=== PATIENT | male | born 2000 | race Asian ===

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

== ENCOUNTER 2019-05-31 16:56 | Emergency (ER) | payer MEDICAID ==
[~2019-05-31] VITALS: Ht 177.8 cm; Wt 117.9 kg
[2019-05-31 17:04] VITALS: BP 133/73
[2019-05-31] MEDS ORDERED: ASPirin 81 mg TAB PO ONE (18:15)
[2019-05-31 19:48] LABS: Basophils # (auto) 0 uL; Basophils % (auto) 0.3 % (0.0-2.0); Eosinophils # (auto) 0.4 uL; Eosinophils % (auto) 4.9 % (0.0-7.0); Hemoglobin 15.4 g/dL (13.5-17.5); Lymphocytes # (auto) 1.9 uL; Lymphocytes % (auto) 20.7 % (10.0-50.0); Mean Corpuscular Hemoglobin 29.8 pg (28.0-32.0); Mean Corpuscular Hgb Conc. 34.2 g/dL (32.0-36.0); Mean Corpuscular Volume 87.2 fL (80.0-100.0); Monocytes # (auto) 0.7 uL; Monocytes % (auto) 7.2 % (0.0-12.0); Neutrophils # (auto) 6.1 uL; Neutrophils % (auto) 66.9 % (37.0-80.0); Nucleated Red Blood Cells % 0.1 %; Platelet Count (auto) 247 10^3/uL (140-450); Red Blood Cells 5.16 10^6/uL (4.5-5.90); White Blood Cell 9.1 10^3/uL (4.4-10.8)
[2019-05-31 20:01] LABS: Anion Gap 3 (5-15); Blood Urea Nitrogen 13 mg/dL (7-18); Calcium 8.7 mg/dL (8.5-10.1); Carbon Dioxide 28 mmol/L (21-32); Chloride 110 mmol/L (98-107); Glucose 87 mg/dL (74-106); Magnesium 2.2 mg/dL (1.6-2.6); Potassium 3.9 mmol/L (3.5-5.1); Sodium 141 mmol/L (136-145)
[2019-05-31 20:02] LABS: Partial Thromboplastin Time 30.1 sec (23.64-32.05)
[2019-05-31 20:08] LABS: Alanine Aminotransferase 38 U/L (16-61); Alkaline Phosphatase 68 U/L (45-117); Aspartate Aminotransferase 24 U/L (15-37); BUN/Creatinine Ratio 17.1; Bilirubin, Total 0.5 mg/dL (0.2-1.0); GFR African American 168 mL/min; GFR Non-African American 139 mL/min; Total Protein 7.8 g/dL (6.4-8.2)
== END 2019-05-31 22:34 | disposition home or self-care (01) ==
LOC: EDUNIT# 16:56 → EDBD 16:56 → ER 16:56
DX: S33.9XXA Sprain of unspecified parts of lumbar spine and pelvis, initial encounter (principal); R07.89 Other chest pain; J45.909 Unspecified asthma, uncomplicated; R11.0 Nausea; Z88.0 Allergy status to penicillin; Z91.010 Allergy to peanuts; Z88.8 Allergy status to other drugs, medicaments and biological substances; Z91.012 Allergy to eggs; Z91.030 Bee allergy status; Z91.013 Allergy to seafood; X50.1XXA Overexertion from prolonged static or awkward postures, initial encounter; Y93.89 Activity, other specified; Y92.89 Other specified places as the place of occurrence of the external cause; Y99.8 Other external cause status
CPT/HCPCS: 36415; 71045; 72131; 80053; 83735; 84443; 84484; 85025; 85379; 85610; 85730; 93005

== ENCOUNTER 2019-12-28 21:21 | Emergency (ER) | payer MEDICAID ==
[~2019-12-28] VITALS: Ht 188 cm; Wt 145.1 kg
[2019-12-28 22:46] LABS: Basophils # (auto) 0.1 10 ^3/uL (0-0.2); Basophils % (auto) 0.7 % (0.0-2.0); Eosinophils # (auto) 0.7 10 ^3/uL (0-0.8); Eosinophils % (auto) 6.2 % (0.0-7.0); Hematocrit 44.7 % (41.0-53.0); Lymphocytes # (auto) 2.6 10 ^3/uL (0.4-5.4); Lymphocytes % (auto) 23.6 % (10.0-50.0); Mean Corpuscular Hemoglobin 28.9 pg (28.0-32.0); Mean Corpuscular Hgb Conc. 33.6 g/dL (32.0-36.0); Mean Corpuscular Volume 85.8 fL (80.0-100.0); Monocytes # (auto) 0.7 10 ^3/uL (0-1.3); Monocytes % (auto) 6.8 % (0.0-12.0); Neutrophils # (auto) 6.8 10 ^3/uL (1.6-8.6); Neutrophils % (auto) 62.7 % (37.0-80.0); Nucleated Red Blood Cells % 0.3 %; Platelet Count (auto) 282 10^3/uL (140-450); Red Blood Cells 5.21 10^6/uL (4.5-5.90); Red Cell Distribution Width 13.3 % (11.8-14.3); White Blood Cell 10.9 10^3/uL (4.4-10.8)
[2019-12-28 22:57] LABS: Albumin 3.7 g/dL (3.4-5.0); Anion Gap 7 (5-15); Blood Urea Nitrogen 14 mg/dL (7-18); Calcium 8.5 mg/dL (8.5-10.1); Carbon Dioxide 25 mmol/L (21-32); Chloride 107 mmol/L (98-107); Glucose 90 mg/dL (74-106); Potassium 4.1 mmol/L (3.5-5.1); Sodium 139 mmol/L (136-145)
[2019-12-28 22:59] LABS: Alanine Aminotransferase 34 U/L (16-61); Aspartate Aminotransferase 18 U/L (15-37); BUN/Creatinine Ratio 16.1; GFR African American 144 mL/min; GFR Non-African American 119 mL/min
[2019-12-28 23:04] LABS: Alkaline Phosphatase 73 U/L (45-117); Bilirubin, Total 0.3 mg/dL (0.2-1.0); Total Protein 7.5 g/dL (6.4-8.2)
[2019-12-28 23:20] VITALS: BP 123/79
== END 2019-12-28 23:50 | disposition home or self-care (01) ==
LOC: ER 21:21
DX: R07.89 Other chest pain (principal); R10.13 Epigastric pain; J45.909 Unspecified asthma, uncomplicated; Z88.8 Allergy status to other drugs, medicaments and biological substances; Z91.010 Allergy to peanuts; Z88.0 Allergy status to penicillin
CPT/HCPCS: 36415; 71045; 80053; 83880; 84484; 85025; 93005

== ENCOUNTER 2020-04-11 15:54 | Emergency (ER) | payer MEDICAID ==
[~2020-04-11] VITALS: Ht 185.4 cm; Wt 117.9 kg
[2020-04-11 16:14] VITALS: BP 142/88
== END 2020-04-11 16:37 | disposition left against medical advice (07) ==
LOC: ER 15:54 → EDBD 15:54 → ER 16:37
DX: R51.9 Headache, unspecified (principal); M54.2 Cervicalgia; Z53.21 Procedure and treatment not carried out due to patient leaving prior to being seen by health care provider

== ENCOUNTER 2021-02-26 18:23 | Emergency (ER) | payer MEDICAID ==
[~2021-02-26] VITALS: Ht 188 cm; Wt 149.7 kg
[2021-02-26] MEDS ORDERED: ACETAMINOPHEN 500 MG TAB PO ONE (18:30)
[2021-02-26 22:56] VITALS: BP 109/49
[2021-02-26] MEDS ORDERED: KETOROLAC TROMETH 60MG/2ML VIAL IM ONE (23:30)
[2021-02-26] MEDS ORDERED: cefTRIAXone SOD 1,000 MG VL IM ONE (23:30)
[2021-02-26] MEDS ORDERED: methylPREDNISolone SOD SUCC 125 MG/2 ML VL IM ONE (23:30)
== END 2021-02-27 00:21 | disposition home or self-care (01) ==
LOC: ER 18:24
DX: S70.361A Insect bite (nonvenomous), right thigh, initial encounter (principal); S00.86XA Insect bite (nonvenomous) of other part of head, initial encounter; R50.9 Fever, unspecified; L02.415 Cutaneous abscess of right lower limb; L02.01 Cutaneous abscess of face; E66.9 Obesity, unspecified; J45.909 Unspecified asthma, uncomplicated; Z68.41 Body mass index [BMI] 40.0-44.9, adult; Z88.0 Allergy status to penicillin; Z88.8 Allergy status to other drugs, medicaments and biological substances; Z91.018 Allergy to other foods; Z91.010 Allergy to peanuts; Z91.013 Allergy to seafood; Z91.012 Allergy to eggs; W57.XXXA Bitten or stung by nonvenomous insect and other nonvenomous arthropods, initial encounter; Y93.89 Activity, other specified; Y92.89 Other specified places as the place of occurrence of the external cause; Y99.8 Other external cause status
CPT/HCPCS: 96372; 99284; J0696; J1885; J2930

== ENCOUNTER 2021-02-28 05:47 | Emergency (ER) | payer MEDICAID ==
[~2021-02-28] VITALS: Ht 188 cm; Wt 149.7 kg
[2021-02-28 07:36] VITALS: BP 119/85
== END 2021-02-28 08:11 | disposition home or self-care (01) ==
LOC: ER 05:47
DX: L02.01 Cutaneous abscess of face (principal); J45.909 Unspecified asthma, uncomplicated; Z88.0 Allergy status to penicillin; Z91.010 Allergy to peanuts; Z88.8 Allergy status to other drugs, medicaments and biological substances; Z91.018 Allergy to other foods; Z91.013 Allergy to seafood; Z91.012 Allergy to eggs; Z91.030 Bee allergy status
CPT/HCPCS: 10060